=== PATIENT | female | born 1980 | race Caucasian/White ===

== ENCOUNTER → 2018-05-26 | Outpatient (CLI) | payer OTHER ==
[~2018-05-26] MED LIST: NORG1TAB5 PO; PAN40 PO; [UNRECOGNIZED DRUG - CODE] PO
--- NOTE | 2018-05-26 11:32 | RADIOLOGY IMAGING REPORT ---
FACILITY: [facility] PATIENT NAME: Elizabeth Lehman : 1980 MR: [id number] V: [id number] EXAM DATE: ORDERING PHYSICIAN: KEVIN CARLTON TECHNOLOGIST: Location: [facility] - [place] Patient: Elizabeth Lehman : 1980 Visit/Account:[id number] Date of Sevice: 05/26/2018 [facility] OB ANATOMICAL SURVEY HISTORY: Screening COMPARISON: None. TECHNIQUE: Transabdominal imaging was performed for assessment of the fetus and maternal pelvic s tructures. Transvaginal imaging was not performed. FINDINGS: Intrauterine gestations: One. presentation: Cephalic. heart rate: 150 bpm. Amniotic fluid volume: Normal; JUSTA 16.14 cm; MVP 4.59 cm. Placenta: Posterior. Uterus: Gravid, otherwise grossly unremarkable where visualized. Maternal adnexa/ovaries: Grossly unremarkable, ovaries not visualized. Cervix: Grossly long and closed. Gestational Parameters: BPD: 5.29 cm, 82nd percentile HC: 19.32 cm, 59th percentile AC: 16.4 cm, 54th percentile FL: 3.7 cm, 63rd percentile Average ultrasound age (AUA): 21 weeks/ six days Estimated age based on LMP: 21 weeks/ one days Estimated weight (EFW): 438 grams +/- 64 grams Anatomic Survey: Intracranial structures, 4-chamber heart, stomach, kidneys, urinary bladder, spine, 3-vessel cord and cord insertion are unremarkable. Two upper and two lower extremities visualized. IMPRESSION: Single viable fetus and cephalic presentation with an estimated gestational age by measurements of 21 weeks and six days. Estimated weight 438 g +/- 64 g Report Dictated By: Mary Lou Mazariegos MD at 05/26/2018 11:24 AM Report E-Signed By: Mary Lou Mazariegos MD at 05/26/2018 11:28 AM IRMAN:JOSE
== END ==
LOC: RAD 07:50
PROVIDERS: ATTEND Student in an Organized Health Care Education/Training Program
DX: Z02.9 Encounter for administrative examinations, unspecified (principal)

== ENCOUNTER → 2018-07-14 | Outpatient (CLI) | payer OTHER ==
[~2018-07-14] MED LIST changes: +DIPH0.5D12 IM
[2018-07-14 09:51] LABS: PLATELET COUNT, AUTOMATED 245 K/uL (150-450)
== END ==
LOC: LAB 08:05
PROVIDERS: ATTEND Student in an Organized Health Care Education/Training Program
DX: Z34.92 Encounter for supervision of normal pregnancy, unspecified, second trimester (principal)
CPT/HCPCS: 36415; 82950; 85025

== ENCOUNTER → 2018-07-19 | Outpatient (CLI) | payer OTHER | LOC: LAB 07:03 | PROVIDERS: ATTEND Student in an Organized Health Care Education/Training Program | DX: O99.810 Abnormal glucose complicating pregnancy (principal) | CPT/HCPCS: 36415; 82951; 82952 ==

== ENCOUNTER 2018-09-06 22:30 | Inpatient (IN) | payer OTHER ==
[~2018-09-06] VITALS: Ht 167.6 cm; Wt 81.6 kg
[~2018-09-06 22:30] MED LIST changes: +FLU60SYR36 IM
[2018-09-06] MEDS ORDERED: ceFAZolin(*) 2GM/D5W 50ML 50 ML IVPB PRN (23:14)
[2018-09-06] MEDS ORDERED: OXYTOCIN 30 UNIT/D5LR 500 ML 500 ML IV PRN (23:14)
[2018-09-06] MEDS ORDERED: FAMOTIDINE(*) 20MG/50ML PREMIX 50 ML IVPB PRN (23:14)
[2018-09-06 23:15] LABS: PLATELET COUNT, AUTOMATED 229 K/uL (150-450)
[2018-09-06] MEDS ORDERED: LIDOCAINE 1% LOCAL 300 MG/30ML INJ PRN (23:15)
[2018-09-06] MEDS ORDERED: fentaNYL CITR 100 MCG/2 ML AMP IVP PRN (23:15)
[2018-09-06] MEDS ORDERED: LIDOCAINE/SOD BICARB 8.4% SYR SC PRN (23:15)
[2018-09-06] MEDS ORDERED: ACETAMINOPHEN 500 MG TAB PO PRN (23:15)
[2018-09-06] MEDS ORDERED: CALCIUM CARBONATE 500 MG CHEW PO PRN (23:15)
[2018-09-06] MEDS ORDERED: ONDANSETRON 4 MG/2 ML VIAL IVP PRN (23:15)
[2018-09-06] MEDS ORDERED: PENICILLIN G 5 MILLUN/100 ML 100 ML IVPB SCH (23:15)
[2018-09-06] MEDS ORDERED: METOCLOPRAMIDE 10 MG/2 ML SDV IVP PRN (23:15)
[2018-09-06] MEDS ORDERED: BETAMETHASONE/ACETATE 6 MG/1ML ONE (23:24)
[2018-09-06] MEDS: LR(*) 1000 ML BAG 1,000 ML IV PRN (23:24)
[2018-09-06] MEDS ORDERED: PENICILLIN G 5 MILLUN/100 ML 100 ML IVPB ONE (23:45)
[2018-09-07] VITALS: BP 99/63; Ht 167.6 cm; Wt 81.6 kg
[2018-09-07] MEDS ORDERED: OXYTOCIN 30 UNIT/D5LR 500 ML 500 ML IV PRN (00:36)
[2018-09-07] MEDS ORDERED: TERBUTALINE SULF 1 MG/ML VIAL SUBQ PRN (00:40)
[2018-09-07] MEDS: PENICILLIN G 2.5 MILLUN/100 ML 100 ML IVPB SCH ×4 (03:10→15:37)
[2018-09-07] MEDS ORDERED: LIDOCAINE/PF 2% 200MG/10ML AMP 200 MG/10 ML AMPUL EPI PRN (07:00)
[2018-09-07] MEDS ORDERED: BUPIVACAINE 0.5% INJ 30ML VIAL EPI PRN (07:00)
[2018-09-07] MEDS ORDERED: BUPIVACAINE 0.25% MPF INJ EPI PRN (07:00)
[2018-09-07] MEDS ORDERED: FENTANYL/ROPIVACAINE 100 ML BAG EPI PRN (07:00)
[2018-09-07] MEDS ORDERED: fentaNYL CITR 100 MCG/2 ML AMP IT PRN (07:00)
[2018-09-07] MEDS ORDERED: LIDO/EPI 2% MPF 1:200,000 20ML EPI PRN (07:00)
[2018-09-07] MEDS: LR(*) 1000 ML BAG 1,000 ML IV PRN (07:20)
[2018-09-07] MEDS ORDERED: EPIDURAL KEYS XX PRN (08:00)
[2018-09-07] MEDS ORDERED: BETAMETHASONE/ACETATE 6 MG/1ML IM SCH (09:00)
--- NOTE | 2018-09-07 09:34 | Anesthesia OB Pre-Anes Eval ---
History of Present Illness Anesthesia Start Date: Sep 07, 2018 Anesthesia Start Time: 07:45 OB Anesthesia Diagnosis: spontaneous ROM Complications: 36 weeks gest. age EDC: Oct 05, 2018 : 1 Para: 0 Vital Signs: Vital Signs Date Time Temp Pulse Resp B/P (MAP) Pulse Ox O2 Delivery O2 Flow Rate FiO2 09/07/18 00:00 98.2 87 19 99/63 (75) 95 Room Air Pain Ratin Heart Tones: WNL Result Diagram: 09/06/18 2305 Height (Inches): 66.00 Weight (Pounds): 180 BMI Calculated: 29.05 Past Medical History Medical History: no pertinent history Surgical History: tonsillectomy (as a child) Previous Anesthesia: general Attended Childbirth Classes?: Yes, Attended HAND BANDER Lecture Hx Anesthesia Reactions: No Hx Family Anesthesia Reaction: No Current Medications: pain medication (IV Fentenyl ) Home Meds Reported Medications Pnv81/Sod Iron Edta& Ps/Fa/Om3 (BAL-CARE DHA COMBO PACK) 1 Each Cmbpkgdrcp, 1 EACH PO DAILY 04/25/18 Allergies: Coded Allergies: codeine (Verified Allergy, Intermediate, [facility], 10/28/14) Anesthesia OB ROS Neurological: No migraines/headaches, No seizures, No neuropathy ENT: Denies Tooth caps, Denies Loose teeth, Denies Chipped teeth, Denies Dentu res, Denies Bridges, Denies Retainers, Denies Veneers, Denies Implants, Denies Tongue ring Pulmonary: No asthma, No smoker (pks/day/yrs) Airway Class: ll Cardiovascular ROS: No edema, No arrhythmia GI ROS: clear liquids Last Solids Date: Sep 07, 2018 Last Solids Time: 19:00 ROS: No Herpes, No STD(s), No Liver Disease, No Renal Disease Endocrine ROS: No diabetes, No gestational diabetes, No thyroid disorder Musculoskeletal ROS: No low back pain, No low back injury, No scoliosis ASA Classification: 2 Assessment and Plan Anesthesia Plan: CSE Assessment Past Medical, Surgical, Family and Obstetric Histories reviewed. Please see ACOG chart. Epidural anesthesia risks, complications and benefits explained to patient's satisfaction for labor and vaginal delivery and/or section. General anesthesia risks and benefits explained to patient's satisfaction. Questions invited, none asked. JEREMIE GARCIA HAND BANDER Sep 07, 2018 09:34
--- NOTE | 2018-09-07 09:40 | Procedure Note ---
Anesthetic Placement Note Anesthesia Plan: CSE Permit for Anesthesia Signed: Yes Anesthesia Technique: Patient Sitting Anesthesia Prep: Chlorhexidine Interspace: L 3-4 Local Anesthetic: 1% Lidocaine, 25 Gauge Needle Amount Local - cc's: 2 Anesthesia Needle: 17g Touhy/Schliff Anesthesia Attempts: 1 Loss of Resistance: Air Depth of SABINO (cm): 4 Epidural Needle Placement: No CSF, No Blood, No Parasthesia Intrathecal Needle: 27 Gauge Pencan Cerebral Spinal Fluid: Yes, Clear Catheter Insertion (cm): 7 Catheter Type: Carney - Spring Wound Epidural Dressing: Tegaderm, Tape, Adhesive [place] Anesthesia Tray: Lot Number ([id number]), Expiration Date (2019-07-31), Reference Number ([id number]) Anesthesia Medications: Intrathecal Dose: mcg Fentanyl (15), mg Marcaine MPF (1.75), Time (0807) Epidural Test Dose: 1.5 Lido/Epi (1:200,000), Dose - mL (3), Time (0836), Negative Epidural Loading Dose: 0.2% Ropivicaine, With Fentanyl 2mcg/ml, Dose - ml (5), Time (0837) Epidural Infusion: 0.2% Ropivicaine, With Fentanyl 2mcg/ml, Start Time: (0837) Epidural Pump Setting: Bolus Dose - mL (5), Lockout - Minutes (20), Maintenance Rate - mL/hr (6), Maximum per Hour - mL (21) Complications: None Comment: Pt. was able to sit with excellent control during contractions and epidural placement. She became comfortable within 5 minutes of intrathecal medication. Mild itching noted. JEREMIE GARCIA CRNA Sep 07, 2018 09:40
--- NOTE | 2018-09-07 09:41 | Anesthesia Progress Note ---
Progress/Maintenance Anesthesia Note Date: Sep 07, 2018 Anesthesia Note Time: 09:40 Pain Intensity: 0 Pump: On Pump Rate (ML/HR): 6 Sensory Level: T-12 Motor Level: Bending Knees-Bilateral Dilatation: 4 Position: Left, Tilt Assessment and Plan Assessment Pt. remains very comfortable, attempting to sleep. JEREMIE GARCIA CRNA Sep 07, 2018 09:41
--- NOTE | 2018-09-07 09:47 | History & Physical ---
History of Present Illness Age of Patient: 37 : 1 Para or TPAL: 0 EDC per LMP: Oct 05, 2018 Estimated Gestational Age: 36.0 Chief Complaint Loss of Fluid History of Present Illness 37-year-old at 36-0/7 weeks gestation presented to labor and delivery with a chief complaint of loss of amniotic fluid. Patient reports that she felt her water break sometime around 10 PM on 09/06/2018. Reports clear fluid reports contractions not starting at that time but did start to picker feeder shortly thereafter. Patient reports good movement. No vaginal bleeding. Not uncomfortable this time. History Patient's Blood Type: O Positive Group B Strep Screen: Unknown Obstetrical History: Advanced maternal age: Maternity 21 negative consistent with female. Past Medical History: Advanced maternal age Allergies: Coded Allergies: codeine (Verified Allergy, [facility], [facility], 10/28/14) Social History: Denies X 3. Family History: FH: diabetes mellitus FATHER FH: hypertension FATHER MOTHER FHx: congenital heart disease FATHER Med Rec Home Meds Reported Medications Pnv81/Sod Iron Edta& Ps/Fa/Om3 (BAL-CARE DHA COMBO PACK) 1 Each Cmbpkgdrcp, 1 EACH PO DAILY 04/25/18 Review of Systems All Systems Reviewed/Normal: Yes, Except as Noted Constitutional: No Fever, No Weight Loss, No Weight Gain, No Chills, No Night Sweats, No Other Neurological: No Syncope, No Confusion, No Weakness, No Dizziness, No Slurred Speech, No Other Eyes: No Vision Change, No Loss of Vision, No Photophobia, No Other ENT: No Hearing Loss, No Sinus Congestion, No Sore Throat, No Ear Ache, No Tinnitus, No Other Cardiovascular: No Chest Pain, No Palpitations, No Orthostatic Hypotension, No Other Respiratory: No Shortness of Breath, No Cough, No Wheezing, No Other Gastrointestinal: No Nausea, No Vomiting, No Diarrhea, No Dysphagia, No Constipation, No Early Satiety, No Hematemesis, No Hematochezia, No Melena, No Abdominal Pain, No Other Genitourinary: No Dysuria, No Hematuria, No Urinary Incontinence, No Other Musculoskeletal: No Pain, No Sprain, No Strain, No Impaired Mobility, No Other Psychiatric: No Depression, No Anxiety, No Other Exam General Exam Vital Signs Vital Signs Date Time Temp Pulse Resp B/P (MAP) Pulse Ox O2 Delivery O2 Flow Rate FiO2 09/07/18 00:00 98.2 87 19 99/63 (75) 95 Room Air General Apperance: Alert/Awake/No Acute Distress Neuro: No Gross deficits Eyes: Normal Extraocular Movement & Vison, PERRLA ENT: Normal Cardiovascular: Regular Rate and Rhythm Respiratory: No Respiratory Distress, Clear to Auscultation Abdomen: Soft, Non-Tender, Non-Distended : Normal Musculoskeletal: No Weakness/Pain Extremities: No Cyanosis,Clubbing or Edema Integumentary: Skin Intact without Lesions or Rash Psychological: Alert & Oriented X3, Appropriate Mood & Affect Vaginal Discharge/Fluid?: Clear Fluid (+Amnisure) Cervical Dialation: 1 Cervical Effacement (%): 50 Cervical Consistency: Soft Cervical Position: Anterior Station: -2 Presentation: Vertex Uterine Contractions(Q min): 3 Uterine Contraction Strength: Moderate UC Resting Tone: Soft Fetus Feeling Movement?: Yes Estimated Weight(grams): 2600 Heart Tone Variabilty: Moderate FHT Accelerations: 15X15 FHT Decelerations: None FHT Category: I Medical Decision Making Data Points Result Diagram: 09/06/18 2305 Pre-Admit Course Medical Record Review: Yes VTE Prophylasis: Adult Deep Vein Thrombosis/Pulmonary: No Assessment and Plan 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 Because patient is 36 weeks and GBS unknown she is receiving penicillin every 4 hours for GBS prophylaxis. Patient has been making cervical change without any oxytocin. Just received epidural Will recheck cervix if no change start oxytocin, will start secondary to hypotonic or infrequent uterine contractions. Expect vaginal delivery. KEVIN CARLTON DO Sep 07, 2018 09:47
--- NOTE | 2018-09-07 11:49 | Labor Progress Note ---
Labor Subjective Progress Notes Subjective Feeling good s/p epidural. Feeling Movement?: Yes Vaginal Discharge/Fluid: Clear Fluid; No Bloody Show, No Bloody Fluid, No Green Tinged Fluid, No Dark Green Fluid, No Mucous, No Small Amount, No Moderate Amount, No Large Amount, No Other Labor Pain: Mild Neurological: No Headache, No Other Eyes: No Visual Disturbances Labor Objective Vital Signs Vital Signs Date Time Temp Pulse Resp B/P (MAP) Pulse Ox O2 Delivery O2 Flow Rate FiO2 09/07/18 00:00 98.2 87 19 99/63 (75) 95 Room Air Cervical Dialation: 5 Cervical Effacement (%): 100 Cervical Consistency: Soft Cervical Position: Anterior Presentation: Vertex Uterine Contractions(Q min): 3 Fetus Heart Tone Variabilty: Moderate FHT Accelerations: 15X15 FHT Category: I Other Result Diagram: 09/06/18 0889 Assessment and Plan 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 Expect . KEVIN CARLTON DO Sep 07, 2018 11:49
--- NOTE | 2018-09-07 12:50 | Anesthesia Progress Note ---
Progress/Maintenance Anesthesia Note Date: Sep 07, 2018 Anesthesia Note Time: 12:40 Pain Intensity: 1 Pump: On Pump Rate (ML/HR): 6 Sensory Level: T-12 Motor Level: Bending Knees-Bilateral Dilatation: 10 Position: Right, Tilt Assessment and Plan Assessment No medication other than epidural gtt per pump and pt. is now 10 cms, rating her pain level as "1". Repositioned with HOB 40 degrees. JEREMIE GARCIA CRNA Sep 07, 2018 12:50
--- NOTE | 2018-09-07 14:08 | Labor Progress Note ---
Labor Subjective Progress Notes Subjective Beginning to feel pressure. Feeling Movement?: Yes Vaginal Discharge/Fluid: Clear Fluid Labor Pain: Mild Neurological: No Headache, No Other Eyes: No Visual Disturbances Labor Objective Vital Signs Vital Signs Date Time Temp Pulse Resp B/P (MAP) Pulse Ox O2 Delivery O2 Flow Rate FiO2 09/07/18 00:00 98.2 87 19 99/63 (75) 95 Room Air Cervical Dialation: 10 Cervical Effacement (%): 100 Cervical Consistency: Soft Cervical Position: Anterior Station: +1 Presentation: Vertex Uterine Contractions(Q min): 3 Fetus Heart Tone Variabilty: Moderate FHT Accelerations: 15X15 FHT Decelerations: Variable FHT Category: II Other Result Diagram: 09/06/18 4248 Assessment and Plan 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 KEVIN CARLTON DO Sep 07, 2018 14:08
--- NOTE | 2018-09-07 16:27 | Anesthesia Progress Note ---
Progress/Maintenance Anesthesia Note Date: Sep 07, 2018 Anesthesia Note Time: 16:23 Pain Intensity: 5 Pump: On Pump Rate (ML/HR): 6 Sensory Level: T-12 Motor Level: Bending Knees-Bilateral, Other (Pushing) Position: Semi-Fowlers Drug Bolus: 0.5% Marcaine (3 ml), Other (Fentenyl 85 mcgs) Assessment and Plan Assessment Pt. states she is feeling more uncomfortable with pushing. Manual bolus given. JEREMIE GARCIA CRNA Sep 07, 2018 16:27
--- NOTE | 2018-09-07 17:04 | Anesthesia Progress Note ---
Progress/Maintenance Anesthesia Note Date: Sep 07, 2018 Anesthesia Note Time: 17:00 Pain Intensity: 1 Pump: Off Motor Level: Bending Knees-Bilateral Dilatation: 10 Assessment and Plan Assessment No further medications were given. Pt. was able to push well. Excellent tolerance of delivery and repair work. Empty syringe attached to epidural catheter and RN agrees to remove later with ambulation. Patient instructed the first ambulation is to be with help of nursing staff. Instructed to preform deep knee bends at bedside before walking. Anesthesia Stop Day: Sep 07, 2018 Anesthesia Stop Time: 17:00 JEREMIE GARCIA CRNA Sep 07, 2018 17:03
[2018-09-07] MEDS ORDERED: APAP/HYDROCODONE 325/5 TAB PO PRN (17:20)
[2018-09-07] MEDS ORDERED: BENZOCAINE 20% 60 ML BTL TP PRN (17:20)
[2018-09-07] MEDS ORDERED: LANOLIN OINT 7 GM TUBE TP PRN (17:20)
[2018-09-07] MEDS ORDERED: HYDROCORTISONE 2.5% CR 30GM TB PR PRN (17:20)
[2018-09-07] MEDS ORDERED: MAGNESIUM HYDROXIDE* 30ML UDCP PO PRN (17:20)
[2018-09-07] MEDS ORDERED: GLYCERIN/WITCH HAZEL LEAF 1 PK TOP PRN (17:20)
--- NOTE | 2018-09-07 17:30 | OB Delivery Note ---
Delivery Note Vaginal Delivery Type: Spont. Vaginal Delivery Delivery Date: Sep 07, 2018 Delivery Time: 16:49 Estimated Gestational Age(wks): 36.0 Length of Labor Stage I (hrs): 10 Length of Labor Stage II (hrs): 4 Labor Stage III (minutes): 6 Delivery Anesthesia: Epidural Infant Sex: Female Infant Weight (gms): 2690 (5#15oz) Apgars: 1 Minute (8), 5 Minute (9) Repair Needed: 2nd Degree Estimated Blood Loss: 500 Delivery Complications: Other (OP) Photo Technologist in Attendence: Yes KEVIN CARLTON DO Sep 07, 2018 17:30
[2018-09-07] MEDS: IBUPROFEN 800 MG TAB PO SCH ×2 (18:21→18:50)
[2018-09-07 19:20] VITALS: BP 103/61
--- NOTE | 2018-09-07 19:27 | DELIVERY NOTE ---
DELIVERY DATE: September 07, 2018 SURGEON: Marino Rodriguez DO ANESTHESIA: Epidural. PREOPERATIVE DIAGNOSES 1. A 37-year-old 1, para zero, at 36-0/7 weeks' gestation. 2. premature rupture of membranes. POSTOPERATIVE DIAGNOSES 1. A 37-year-old 1, para zero, at 36-0/7 weeks' gestation. 2. premature rupture of membranes. 3. Delivered. PROCEDURES 1. Spontaneous vaginal delivery. 2. Repair of second-degree midline laceration. FINDINGS Live-born female infant at 1649 of 09/07/2018 with Apgars of 8 and 9, weighing 2690 g, that is, 5 pounds 15 ounces, three-vessel cord, intact placenta, over a second-degree midline laceration. PATHOLOGY None. ESTIMATED BLOOD LOSS 500 mL COMPLICATIONS None known. CONDITION Stable times two. Mother and infant to remain in the LDRP. COUNTS Correct times two for all needles, laps, sponges, and instruments. LABOR SUMMARY Patient is a 37-year-old G1, P0, at 36-0/7 weeks' gestation. She presented to Labor and Delivery with the complaint of loss of amniotic fluid. She was noted to be grossly ruptured. She spontaneously made cervical change from 1 cm to 4 cm. She eventually did get an epidural. She was started on oxytocin to augment hypotonic uterine contractions. She did progress quickly to complete. She was allowed to labor down for approximately an hour and a half. After an hour and a half, she commenced pushing. After approximately two and a half hours of pushing, the patient was ready, and the delivery team was called and assembled. DELIVERY SUMMARY Patient was placed in the dorsal lithotomy position, prepped and draped in the usual sterile manner. Upon maternal pushing, the 's head delivered in a controlled manner, followed by the anterior shoulder with gentle downward motion and posterior shoulder with gentle upward motion. The remainder of the 's body delivered spontaneously. Mouth and nose were bulb suctioned. The cord was clamped times two and cut by the infant's father, at which time the infant was placed on the maternal abdomen where she was vigorously cleaned and dried. Cord blood gas was obtained. The placenta delivered spontaneously with gentle cord traction. Oxytocin was infused to help with uterine tone. Uterus was massaged until clear. Upon inspection of the peritoneum, vagina, cervix, and labia, it was noted that there was a second-degree midline laceration. This was repaired with a 3-0 Vicryl in the usual manner. With laceration repaired, it was inspected and noted to be hemostatic. At this point, the patient was cleaned, the labor bed was reassembled, and the mother and were allowed to continue to verduzco. VIRAJ
[2018-09-07] MEDS ORDERED: PENICILLIN G 2.5 MILLUN/100 ML 100 ML IVPB SCH (19:30)
[2018-09-07] MEDS: DOCUSATE CALCIUM 240 MG CAP PO SCH (21:02)
[2018-09-07 23:35] VITALS: BP 110/63
[2018-09-08] MEDS: IBUPROFEN 800 MG TAB PO SCH ×3 (02:06→17:58)
[2018-09-08 04:18] VITALS: BP 101/53
[2018-09-08 07:42] VITALS: BP 95/62
[2018-09-08] MEDS: ACETAMINOPHEN 325 MG TAB PO PRN ×3 (09:07→15:37)
[2018-09-08] MEDS: DOCUSATE CALCIUM 240 MG CAP PO SCH ×2 (09:07→21:20)
[2018-09-08] MEDS ORDERED: fentaNYL CITR 100 MCG/2 ML AMP IT PRN (10:10)
[2018-09-08] MEDS ORDERED: EPIDURAL KEYS XX PRN (10:10)
[2018-09-08] MEDS ORDERED: LIDOCAINE/PF 2% 200MG/10ML AMP 200 MG/10 ML AMPUL EPI PRN (10:10)
[2018-09-08] MEDS ORDERED: LIDO/EPI 2% MPF 1:200,000 20ML EPI PRN (10:10)
[2018-09-08] MEDS ORDERED: FENTANYL/ROPIVACAINE 100 ML BAG EPI PRN (10:10)
[2018-09-08] MEDS ORDERED: BUPIVACAINE 0.25% MPF INJ EPI PRN (10:10)
[2018-09-08] MEDS ORDERED: BUPIVACAINE 0.5% INJ 30ML VIAL EPI PRN (10:10)
[2018-09-08 11:21] VITALS: BP 105/64
--- NOTE | 2018-09-08 11:49 | Anesthesia Post Eval Note ---
Anesthesia Post Eval Note Vital Signs Date Time Temp Pulse Resp B/P (MAP) Pulse Ox O2 Delivery O2 Flow Rate FiO2 09/08/18 11:21 97.9 70 16 105/64 (78) 94 Room Air Pt able to participate in Eval: Yes Cardiovascular Status: Satisfactory Respiratory Status: Satisfactory Pain Managment: Satisfactory PO Nausea/Vomiting: Satisfactory Temperature Management: Satisfactory Mental Status: Satisfactory, Alert, Oriented X3 Post-Op Hydration Status: Satisfactory, Tolerating PO Well, Voiding w/o Difficulty Anesthesia Type: CSE Anesthesia Tolerance: Tolerated procedure well without apparent anesthetic complications. LP site clear, no redness or edema. Denies headache or any residual paresthesia. Vital Signs Stable, Patient comfortable and condition stable. JEREMIE GARCIA GASOLINE CATALYST OPERATOR Sep 08, 2018 11:49
--- NOTE | 2018-09-08 18:20 | OB/GYN Progress Note ---
OB Subjective Progress Notes Subjective Doing good this morning. Reports lochia appropriate. Tolerating PO intake. Ambulatory. Voiding with out any difficulty. . GI: NEG Nausea, NEG Vomiting, NEG Flatus, NEG Bowel Movement : Voiding Well, Vaginal Bleeding, Moderate Pain: Mild, Tolerating PO Pain Meds Neurological: No Headache, No Other Eyes: No Visual Disturbances OB Objective Physical Exam Vital Signs Date Time Temp Pulse Resp B/P (MAP) Pulse Ox O2 Delivery O2 Flow Rate FiO2 09/08/18 11:21 97.9 70 16 105/64 (78) 94 Room Air Intake and Output 09/08/18 07:00 Intake Total 2450 ml Output Total 2100 ml Balance 350 ml IV Total 2450 ml Output Urine Total 2100 ml General Appearance: Alert/Awake/No Acute Distress Neurological: No Gross deficits Eyes: Normal Extraocular Movement & Vison, PERRLA Respiratory: No Respiratory Distress, Clear to Auscultation Abdomen: Soft, Non-Tender, Non-Distended, Fundus Firm Extremities: No Cyanosis,Clubbing or Edema Integumentary: Skin Intact without Lesions or Rash Psychological: Alert & Oriented X3, Appropriate Mood & Affect Result Diagram: 09/08/18 0548 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 Pt pain controlled with Ibuprofen only. Will monitor for additional 24 hours secondary to concerns and a premature . KEVIN CARLTON DO Sep 08, 2018 18:20
[2018-09-08 19:40] VITALS: BP 111/61
[2018-09-09] MEDS: IBUPROFEN 800 MG TAB PO SCH ×2 (02:58→10:52)
[2018-09-09 03:01] VITALS: BP 109/68
--- NOTE | 2018-09-09 07:44 | OB/GYN Progress Note ---
OB Subjective Progress Notes Subjective Doing good this morning. Tolerating PO intake. Tolerating regular diet. Lochia appropriate. Ambulatory. Voiding with out any difficulty. seems to be improving. GI: NEG Nausea, NEG Vomiting, NEG Flatus, NEG Bowel Movement : Voiding Well, Vaginal Bleeding, Moderate Pain: Mild, Tolerating PO Pain Meds (Ibuprofen only) Neurological: No Headache, No Other Eyes: No Visual Disturbances OB Objective Physical Exam Vital Signs Date Time Temp Pulse Resp B/P (MAP) Pulse Ox O2 Delivery O2 Flow Rate FiO2 09/09/18 03:01 97.8 61 16 109/68 (82) Room Air 09/08/18 19:40 90 Intake and Output 09/09/18 07:00 Intake Total 120 ml Balance 120 ml Intake Oral 120 ml General Appearance: Alert/Awake/No Acute Distress Neurological: No Gross deficits Eyes: Normal Extraocular Movement & Vison, PERRLA Respiratory: No Respiratory Distress, Clear to Auscultation Abdomen: Soft, Non-Tender, Non-Distended, Fundus Firm Extremities: No Cyanosis,Clubbing or Edema Integumentary: Skin Intact without Lesions or Rash Psychological: Alert & Oriented X3, Appropriate Mood & Affect Result Diagram: 09/08/18 0548 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 If not will change to room in status. Pt to follow up in 2 weeks for post care. KEVIN CARLTON DO Sep 09, 2018 07:44
[2018-09-09] MEDS ORDERED: IBUP800T37 PO (07:45)
--- NOTE | 2018-09-09 07:51 | OB/GYN Discharge Summary ---
Discharge Summary Reason for Hosp/Final Diag: (1) 36 weeks gestation of Status: Resolved (2) premature rupture of membranes (PPROM) with onset of labor after 24 hours of rupture in third trimester, antepartum Status: Resolved (3) care and examination immediately after delivery Hospital Course & Plan: Pt presented with a complaint of leaking fluid. Was noted to be grossly ruptured. Pt progressed to complete and delivered with out any difficulty. Please see delivery note for details. Pt remained in the hospital for 2 days with her 36 week baby. Pt was meeting post goals and was discharged home. [place] Vital Signs Vital Signs Date Time Temp Pulse Resp B/P (MAP) Pulse Ox O2 Delivery O2 Flow Rate FiO2 09/09/18 03:01 97.8 61 16 109/68 (82) Room Air 09/08/18 19:40 90 Weight (Pounds): 180 Result Diagram: 09/08/18 0548 Condition: Improved Discharge: Home Home Meds Reported Medications Pnv81/Sod Iron Edta& Ps/Fa/Om3 (BAL-CARE DHA COMBO PACK) 1 Each Cmbpkgdrcp, 1 EACH PO DAILY 04/25/18 Follow up with: [facility] [phone], Dr. Rodriguez [phone] Follow up in: 2 wks PO Discharge Diet: As Tolerates, Resume Prior Admit Diet Discharge Activity: As Tolerates, Pelvic Rest KEVIN RODRIGUEZ DO Sep 09, 2018 07:51
[2018-09-09] MEDS ORDERED: INFLUENZA VIRUS VAC 0.5ML SYR IM ONLY ONE (09:00)
[2018-09-09] MEDS ORDERED: DIPHTH/TETANUS/ACEL. PERTUSSIS IM ONLY ONE (09:00)
[2018-09-09] MEDS ORDERED: MEASLES,MUMP,RUBELLA VAC 0.5ML SUBQ ONE (09:00)
[2018-09-09] MEDS: DOCUSATE CALCIUM 240 MG CAP PO SCH (09:28)
[2018-09-09 09:30] VITALS: BP 113/75
== END 2018-09-09 16:45 | disposition home or self-care (01) | DRG 807 ==
LOC: OBSVTOIN 22:30 → UNDOADMOB 22:30 → INTOOBSV 22:30 → OB 22:30
PROVIDERS: ADMIT Student in an Organized Health Care Education/Training Program; ATTEND Student in an Organized Health Care Education/Training Program
PROC: 10E0XZZ Delivery of Products of Conception, External Approach (ICD-10-PCS; principal; 2018-09-07)
PROC: 0KQM0ZZ Repair Perineum Muscle, Open Approach (ICD-10-PCS; 2018-09-07)
DX: O42.013 Preterm premature rupture of membranes, onset of labor within 24 hours of rupture, third trimester (principal); Z37.0 Single live birth; O62.2 Other uterine inertia; Z3A.36 36 weeks gestation of pregnancy; O70.1 Second degree perineal laceration during delivery; Z88.8 Allergy status to other drugs, medicaments and biological substances
CPT/HCPCS: 36415; 85025; 85027; 86850; 86900; 86901; J0702; J2540; J2590; J3010; J7120